=== PATIENT | female | born 1980 | race African-American/Black ===

== ENCOUNTER 2023-04-08 12:15 | Emergency (ER) | payer OTHER ==
[2023-04-08 12:40] VITALS: BP 150/73; PULSE 66; RESP 20; TEMP 98; BMI 28.0
[2023-04-08] MEDS ORDERED: KETOROLAC TROMETHAMINE 30 MG/1 ML VIAL IM ONE (14:34)
[2023-04-08] MEDS ORDERED: KETOROLAC TROMETHAMINE 30 MG/1 ML VIAL ONE (14:55)
== END 2023-04-08 17:08 | disposition home or self-care (01) ==
LOC: JERFT 12:15
PROC: 3E0233Z Introduction of Anti-inflammatory into Muscle, Percutaneous Approach (ICD-10-PCS; principal; 2023-04-08)
DX: M25.561 Pain in right knee (principal); M25.562 Pain in left knee; M25.512 Pain in left shoulder; M25.521 Pain in right elbow; M79.641 Pain in right hand; M54.6 Pain in thoracic spine; M54.50 Low back pain, unspecified; W10.9XXA Fall (on) (from) unspecified stairs and steps, initial encounter; Y93.01 Activity, walking, marching and hiking
CPT/HCPCS: 72070-TC-FY; 72100-TC-FY; 73030-TC-LT-FY; 73070-TC-RT-FY; 73130-TC-RT-FY; 99284-25

== ENCOUNTER 2023-06-26 12:49 | Emergency (ER) | payer OTHER ==
[2023-06-26 13:16] VITALS: BP 129/90; PULSE 61; RESP 20; TEMP 98.4; BMI 28.3
[2023-06-26 14:26] LABS: THROAT:GRP A STREP NOT DETECTED (NOTDETECTED)
[2023-06-26] MEDS ORDERED: ACETAMINOPHEN 325 MG TABLET (FP) ONE (14:55)
[2023-06-26] MEDS ORDERED: DEXAMETHASONE 4 MG TABLET (FP) ONE (14:56)
[2023-06-26] MEDS: KETOROLAC TROMETHAMINE 30 MG/1 ML VIAL IM ONE (15:01)
[2023-06-26] MEDS: DEXAMETHASONE LIQUID 0.5 MG/5 ML PO ONE (15:01)
[2023-06-26] MEDS: ACETAMINOPHEN 500 MG TABLET (FP) PO ONE (15:01)
[2023-06-26] MEDS: guaiFENesin 200 MG/10 ML 10 ML UNIT-DOSE CUPS PO ONE (15:01)
== END 2023-06-26 15:05 | disposition home or self-care (01) ==
LOC: JER 12:49
DX: R07.89 Other chest pain (principal); R51.9 Headache, unspecified; R53.81 Other malaise; J02.9 Acute pharyngitis, unspecified; J06.9 Acute upper respiratory infection, unspecified; Z20.822 Contact with and (suspected) exposure to COVID-19
CPT/HCPCS: 0241U-QW; 84703; 87651; 93005; 93010; 99284-25